=== PATIENT | male | born 1975 | race Two or more races ===

== ENCOUNTER 2021-01-24 15:21 | Inpatient (IN) | payer MEDICAID ==
[~2021-01-24] VITALS: Ht 162.6 cm; Wt 89.8 kg
--- NOTE | 2021-01-24 15:41 | NUR ---
NANCY DAUGHTER [phone]
--- NOTE | 2021-01-24 16:11 | NUR ---
[facility] TO ER BED 12. AAOX1. NOT IN RESP DSITRESS, BREATHING EVEN AND UNLABORED. ANSWERS TO YES AND NO QUESTIONS BY GESTURES. BED BOUND. BROUGHT IN FOR DISLODGE TRACH TUBE. PT STOMA IS NOTED ALREADY CLOSED. PT IS BREATHING ON HIS OWN WITHOUT ANY DISTRESS. PT SATTING 95-96% ON RA. PT IS PLACED ON O2 VIA NC PER MD ORDERED, TOLERATING WELLW/ O2 SAT OF 100%. MD WAS AT THE BEDSIDE FOR EVAL. ORDERS RECEIVED, NOTED AND CARRIED OUT. IV LINE ESTABLSIHED ON THE L AC 20G. BLOOD DRAWN BY PHLEB. PT ON MONITOR.
[2021-01-24 16:13] LABS: BASOPHILS # (AUTO) 0.1 /CMM (0.0-0.2); BASOPHILS % (AUTO) 0.8 % (0.0-2.0); EOSINOPHILS % (AUTO) 1.3 % (0.0-6.0); HEMATOCRIT 36 % (39-51); HEMOGLOBIN 11.8 g/dL (13.5-17.5); LYMPHOCYTES # (AUTO) 2.4 /CMM (0.8-4.8); LYMPHOCYTES % (AUTO) 32.9 % (20.0-44.0); MEAN CORPUSCULAR HGB CONC 33 g/dl (31.0-36.0); MEAN CORPUSCULAR VOLUME 84 fL (80-96); MONOCYTES # (AUTO) 0.4 /CMM (0.1-1.30); MONOCYTES % (AUTO) 5.6 % (2.0-12.0); NEUTROPHILS # (AUTO) 4.3 /CMM (1.8-8.9); NEUTROPHILS % (AUTO) 59.4 % (43.0-81.0); PLATELET COUNT (AUTO) 239 /CMM (150-450); WHITE BLOOD COUNT (AUTO) 7.3 K/uL (4.3-11.0)
[2021-01-24 16:26] LABS: CREATININE 0.6 mg/dL (0.6-1.3); POTASSIUM 3.3 mmol/L (3.5-5.1)
[2021-01-24 16:32] LABS: ALBUMIN 3.3 g/dL (3.4-5.0); BILIRUBIN,DIRECT 0.1 mg/dL (0.0-0.2); BILIRUBIN,TOTAL 0.5 mg/dL (0.2-1.0); TOTAL PROTEIN, SERUM 7.8 g/dL (6.4-8.2)
--- NOTE | 2021-01-24 17:15 | NUR ---
MOVE SHEET SUBMITTED AND CALLED FOR TELE BED.
--- NOTE | 2021-01-24 17:40 | NUR ---
PT IN BED. AWAKE AND ALERT. NOT IN RESP DISTRESS. BREATHING EVEN AND UNLABORED.
[2021-01-24] MEDS ORDERED: ATOR80TA PO (17:42)
[2021-01-24] MEDS ORDERED: LEVE100S PO (17:42)
[2021-01-24] MEDS ORDERED: LORA-259 PO (17:42)
[2021-01-24] MEDS ORDERED: TRAZ-252 PO (17:42)
[2021-01-24] MEDS ORDERED: MULT1TAB69 PO (17:42)
[2021-01-24] MEDS ORDERED: CHLO25TA23 PO (17:42)
[2021-01-24] MEDS ORDERED: ASPI-1169 PO (17:42)
[2021-01-24] MEDS ORDERED: HYDROCODONE/APAP 5/325MG TABLET PO PRN (18:00)
[2021-01-24] MEDS ORDERED: ONDANSETRON HCL/PF 4 MG/2 ML VIAL IVP PRN (18:00)
[2021-01-24] MEDS ORDERED: ZOLPIDEM TARTRATE 5 MG TABLET PO PRN (18:00)
[2021-01-24] MEDS ORDERED: Z GUARD REMEDY 2 OZ OINT TP PRN (18:00)
[2021-01-24] MEDS ORDERED: ACETAMINOPHEN 325 MG TABLET PO PRN (18:00)
[2021-01-24] MEDS ORDERED: MAGNESIUM HYDROXIDE 30 ML UDC PO PRN (18:00)
[2021-01-24] MEDS ORDERED: MAG HYDROX/AL HYDROX/SIMETH 30 ML UDC PO PRN (18:00)
[2021-01-24] MEDS ORDERED: LORAZEPAM 1 MG TABLET PO PRN (18:00)
--- NOTE | 2021-01-24 19:31 | NUR ---
PT ASSIGNED TO BED 108
--- NOTE | 2021-01-24 19:48 | NUR ---
REPORT GIVEN TO PARISH LIMON FOR TINA
--- NOTE | 2021-01-24 20:21 | NUR ---
PT TRANSPORTED TO UNIT ON GURNEY WITH EMT AND RN AT BEDSIDE W/ ACLS PROTOCOL. NAD NOTED DURING TRANSPORT.
[2021-01-24 20:28] VITALS: BP 130/86
[2021-01-24] MEDS: POTASSIUM CL. PREMIX PERIPHER. 50 ML IV SCH ×2 (22:21→23:28)
[2021-01-24] MEDS: TRAZODONE 50 MG TABLET PO SCH (22:31)
[2021-01-24] MEDS: ATORVASTATIN 40 MG TABLET PO SCH (22:32)
[2021-01-24] MEDS ORDERED: POTASSIUM CL. PREMIX PERIPHER. 100 ML ONE (22:36)
[2021-01-25] VITALS: BP 128/77
--- NOTE | 2021-01-25 01:00 | NUR ---
WRONG PATIENT BLOOD SUGAR
--- NOTE | 2021-01-25 01:00 | NUR ---
BLOOD SUGAR 139 1 HOUR AFTER 2400 COVERAGE ORDERED
[2021-01-25] MEDS: GLUCERNA 1.2 1,000 ML BOTTLE GT PRN ×2 (03:14→19:47)
[2021-01-25 04:00] VITALS: BP 131/83
--- NOTE | 2021-01-25 05:36 | NUR ---
ENDING NOTES: CONFUSED NONVERBAL THRU THE NIGHT ASP PRECAUTIONS D/T GT FDG GLUCERNA AT 70ML HR INFUSING WO PROBLEMS NO RESIDUAL WRIST RETRAINTS ON D/T HE REMOVED HIS IV AND CONTINUES TO REMOVE THE N/C 02 AT 5LITERS AND USINF NC AND SATS 94-96% 2X2 DRSSING ON THE NECK SP TRACK SITE CDI AM WIEGHT 197 LIBS
[2021-01-25 06:28] LABS: BASOPHILS % (AUTO) 0.4 % (0.0-2.0); EOSINOPHILS % (AUTO) 1.5 % (0.0-6.0); HEMATOCRIT 36 % (39-51); HEMOGLOBIN 11.8 g/dL (13.5-17.5); LYMPHOCYTES # (AUTO) 1.8 /CMM (0.8-4.8); LYMPHOCYTES % (AUTO) 27.1 % (20.0-44.0); MEAN CORPUSCULAR HGB CONC 33 g/dl (31.0-36.0); MEAN CORPUSCULAR VOLUME 83 fL (80-96); MONOCYTES # (AUTO) 0.3 /CMM (0.1-1.30); MONOCYTES % (AUTO) 4.9 % (2.0-12.0); NEUTROPHILS # (AUTO) 4.5 /CMM (1.8-8.9); NEUTROPHILS % (AUTO) 66.1 % (43.0-81.0); PLATELET COUNT (AUTO) 216 /CMM (150-450); RED BLOOD CELL COUNT(AUTO) 4.33 MIL/uL (4.5-6.0); WHITE BLOOD COUNT (AUTO) 6.7 K/uL (4.3-11.0)
[2021-01-25 06:54] LABS: CALCIUM, SERUM 8.7 mg/dL (8.5-10.1); CREATININE 0.5 mg/dL (0.6-1.3); MAGNESIUM 2.2 mg/dL (1.8-2.4); PHOSPHORUS 5.4 mg/dL (2.5-4.9); POTASSIUM 3.8 mmol/L (3.5-5.1)
--- NOTE | 2021-01-25 07:10 | NUR ---
RN OPENING NOTES RECEIVED PT IN BED AWAKE, A/O X1. NON VERBAL. 5L O2 VIA NC SATURATING @98%. NO SOB OR ANY SIGNS OF ACUTE RESPIRATORY DISTRESS. SR ON TELE MONITOR. SKIN IS INTACT. GT PLACEMENT CHECKED. GLUCERNA 1.2 @70CC/HR TOLERATING FEEDING WELL. DENIES PAIN. LAC #20 INTACT, PATENT AND FLUSHED. SAFETY MEASURES IN PLACE. BED LOCKED AND AT LOWEST POSITION WITH SIDE RAILS UP X3. CALL LIGHT WITHIN REACH. HOB ELEVATED. BED ALARM ON. WILL CONTINUE TO MONITOR.
[2021-01-25 08:00] VITALS: BP 121/89
[2021-01-25] MEDS: chlorproMAZINE HCL 25 MG TABLET PO SCH ×2 (08:57→17:06)
[2021-01-25] MEDS: ASPIRIN 81 MG TAB.CHEW PO SCH (08:57)
[2021-01-25] MEDS: LEVETIRACETAM SOL (5 ML) 100 MG/ML UDC PO SCH ×2 (08:57→20:39)
[2021-01-25] MEDS: MULTIVITAMINS,THERAGRAN 1 UDTAB TABLET PO SCH (08:57)
[2021-01-25] MEDS ORDERED: ALBUTEROL HALF STRENGTH 1.25 MG/3 ML VIAL.NEB NEB PRN (11:30)
[2021-01-25] MEDS ORDERED: IPRATROPIUM NEB FS 0.5 MG/2.5 ML AMPUL.NEB NEB PRN (11:30)
[2021-01-25 12:00] VITALS: BP 114/66
[2021-01-25 16:00] VITALS: BP 126/76
--- NOTE | 2021-01-25 18:44 | NUR ---
RN CLOSING NOTES NO SIGNIFICANT CHANGES THROUGHOUT THE SHIFT. NEEDS ATTENDED. DENIES ANY PAIN. STABLE CONDITION. SAFETY MEASURES IN PLACE. WILL ENDORSE TO NIGHT NURSE FOR TINA.
--- NOTE | 2021-01-25 19:20 | NUR ---
java security engineer opening notes Received Pt from morning nurse. Pt is resting in bed comfortably. Pt is alert and orientedX1, non verbal and able to nods head. Respiration is 5 L NC. No SOB. No S/S of distress noted. Iv site at LAC# 20 is clean, intact, flushes well and SL. Gtube is clean, intact and infusing well glucerna 1.2 kev @ 70 ml/hr. tele monitor showed SR hr at 92. Safety precautions is maintained. Bed at low position, brakes locked, side rails upX3, hob elevated and call light is within reach. Will continue to monitor.
[2021-01-25 20:00] VITALS: BP 126/75
[2021-01-25] MEDS: ATORVASTATIN 40 MG TABLET PO SCH (21:00)
[2021-01-25] MEDS: TRAZODONE 50 MG TABLET PO SCH (21:00)
[2021-01-26] VITALS (7 sets, daily range): BP systolic 123–137; BP diastolic 71–85
[2021-01-26 06:13] LABS: CALCIUM, SERUM 8.8 mg/dL (8.5-10.1); CREATININE 0.5 mg/dL (0.6-1.3); POTASSIUM 3.6 mmol/L (3.5-5.1)
[2021-01-26 06:29] LABS: BASOPHILS % (AUTO) 0.5 % (0.0-2.0); EOSINOPHILS % (AUTO) 1.9 % (0.0-6.0); HEMATOCRIT 34 % (39-51); HEMOGLOBIN 11.2 g/dL (13.5-17.5); LYMPHOCYTES # (AUTO) 1.9 /CMM (0.8-4.8); LYMPHOCYTES % (AUTO) 27.1 % (20.0-44.0); MEAN CORPUSCULAR HGB CONC 33 g/dl (31.0-36.0); MEAN CORPUSCULAR VOLUME 83 fL (80-96); MONOCYTES # (AUTO) 0.4 /CMM (0.1-1.30); MONOCYTES % (AUTO) 5.8 % (2.0-12.0); NEUTROPHILS # (AUTO) 4.5 /CMM (1.8-8.9); NEUTROPHILS % (AUTO) 64.7 % (43.0-81.0); PLATELET COUNT (AUTO) 208 /CMM (150-450); RED BLOOD CELL COUNT(AUTO) 4.07 MIL/uL (4.5-6.0); WHITE BLOOD COUNT (AUTO) 6.9 K/uL (4.3-11.0)
--- NOTE | 2021-01-26 06:35 | NUR ---
shallot packer closing notes Pt is resting in bed comfortably. Pt is alert and orientedX1, non verbal and able to nods head. Respiration is 4 L NC with O2 sat is 98%. No SOB. No S/S of distress noted. VS is stable. Afebrile. Routine meds were given as ordered. IV site at LAC# 20 is clean, intact, flushes well and SL. Gtube is clean, intact and infusing well glucerna 1.2 kev @ 70 ml/hr with 0 residual. Pt tolerated well. Tele monitor showed SR hr at 70. Bilateral soft wrists restraint are intact, skin is warm to touch and circulation is checks Q 2 hr. Kept Pt clean, dry and comfortable. Safety precautions is maintained. Bed at low position, brakes locked, side rails upX3, hob elevated and call light is within reach. Will endorse to morning nurse for TINA.
[2021-01-26] MEDS: LEVETIRACETAM SOL (5 ML) 100 MG/ML UDC PO SCH ×2 (08:07→20:50)
[2021-01-26] MEDS: MULTIVITAMINS,THERAGRAN 1 UDTAB TABLET PO SCH (08:07)
[2021-01-26] MEDS: ASPIRIN 81 MG TAB.CHEW PO SCH (08:07)
[2021-01-26] MEDS: chlorproMAZINE HCL 25 MG TABLET PO SCH ×2 (08:07→16:35)
--- NOTE | 2021-01-26 10:45 | NUR ---
WOUND CARE CONSULT: PT PRESENTS WITH INTACT SKIN. PT NOTED TO BE INCONTINENT. RECOMMENDATIONS MADE FOR SKIN PROTECTION. DISCUSSED WITH NURSING STAFF. PT IS ON RODRICK ISOFLEX LOW AIRLOSS BED. MD IN AGREEMENT WITH PLAN OF CARE.
--- NOTE | 2021-01-26 11:00 | NUR ---
RN NOTE Patient passed nursing swallow eval. Able to drink water without difficulty, no signs of aspiration, no coughing. Notified MD; awaiting diet orders. Speech therapy stated she will able to come by tomorrow for ST naila. Addendum: 01/26/21 at 1159 by ROLANDO JUAN RN Received telephone order for diabetic diet. Patient able to swallow apple sauce without difficulty.
[2021-01-26 12:04] LABS: ABG BASE EXCESS 4.2 mmol/L; ABG OXYGEN SATURATION 93.2 % (92.0-98.5); ABG PCO2 46.9 mmHg (35.0-45.0); ABG PH 7.416 (7.350-7.450); ABG PO2 68.1 mmHg (75.0-100.0); AaDO2 25.5 mmHg; COHb 0.6 % (0.5-1.5); MetHb 0.3 % (0.0-1.5); O2Hb 92.4 % (94.0-97.0); SITE, ABG Left Brachial; VENT MODE, BG room air
--- NOTE | 2021-01-26 18:08 | NUR ---
RN CLOSING NOTE Patient is A/Ox1, confused, able to answer by nodding head or occasionally one word. Breathing is even and unlabored saturating 93-95% on room air. Tele monitor SR 90s. LAC#20g is clean and intact flushing well s/l. Bilateral soft wrist restraints in place d/t patient attempting to pull out lines, circulation checked, no adverse reaction. Safety measures in place, aspiration and seizure precautions in place, call light within reach. Will endorse to manager night for TINA.
--- NOTE | 2021-01-26 19:10 | NUR ---
chart changer opening notes Received Pt from morning nurse. Pt is resting in bed comfortably. Pt is alert and orientedX1, non verbal and able to nods head. Respiration is normal in room air. No SOB. No S/S of distress noted. Iv site at LAC# 20 is clean, intact, flushes well and SL. Per am nurse Pt passed bedside nursing swallow eval. Tele monitor showed Stachy hr at 108. Bilateral soft wrists restraints are intact, skin is warm to touch and circulation is checks Q 2 HR. Safety precautions is maintained. Bed at low position, brakes locked, side rails upX3, hob elevated and call light is within reach. Will continue to monitor.
[2021-01-26] MEDS: MUPIROCIN OINT 2% 22 GM TUBE NS SCH (20:40)
[2021-01-26] MEDS: TRAZODONE 50 MG TABLET PO SCH (21:04)
[2021-01-26] MEDS: ATORVASTATIN 40 MG TABLET PO SCH (21:04)
--- NOTE | 2021-01-26 22:43 | NUR ---
brand ambassador closing notes Transferred continuity of care to PARISH Otero.
--- NOTE | 2021-01-26 22:55 | NUR ---
RN NOTES, RECEIVED PATIENT FROM ALEXIS LUGO FOR CONTINUATION OF CARE, PATIENT ON ROOM AIR NO SOB/ACUTE DISTRESS NOTED, WILL CONTINUE TO MONITOR CLOSELY.
[2021-01-27] VITALS: BP 134/83
[2021-01-27 04:00] VITALS: BP 145/94
--- NOTE | 2021-01-27 06:51 | NUR ---
RN NOTE, PATIENT IN BED, ASLEEP AT THIS TIME, AROUSES TO VERBAL STIMULI, BREATHING EVEN AND UNLABORED, NO SO/ACUTE DISTRESS AT THIS TIME, WITH O2 SAT LEVEL >94% AT ROOM AIR SR ON THE MONITOR, BILATERAL SOFT WRIST RESTRAIN IN PLACED, NO ABNORMALITY NOTED AT SITE, NO CIRCULATION COMPROMISED, NO SIGNIFICANT CHANGE IN CONDITION DURING THE NIGHT, ALL SAFETY MEASURES IN PLACED, BED LOCKED AND LOWEST POSITION, SIDE RAILS UP X2, CALL LIGHT WITHIN REACH, WILL ENDORSE CONTINUITY OF CARE TO ONCOMING NURSE.
[2021-01-27 08:00] VITALS: BP 156/99
--- NOTE | 2021-01-27 08:00 | NUR ---
PATIENT RECEIVED IN BED, ON ROOM AIR. PATIENT REPORTEDLY REMOVED TRACH, CURRENTLY BREATHING ON ROOM AIR WITH BL SOFT WRIST RESTRAINTS TO PREVENT PULLING GT AND IV LINES. PATIENT ABLE TO NOD HEAD YES OR NO FOR SIMPLE QUESTIONS. PATIENT LAC [address], FLUSHED WELL, NO SIGNS OF INFECTION OR INFILTRATION. PER PREVIOUS RN, PATIENT TO BE DC TODAY. ALL SAFETY MEASURES IN PLACE. WILL CONTINUE TO MONITOR CLOSELY
[2021-01-27] MEDS: LEVETIRACETAM SOL (5 ML) 100 MG/ML UDC PO SCH ×2 (08:15→22:20)
[2021-01-27] MEDS: ASPIRIN 81 MG TAB.CHEW PO SCH (08:15)
[2021-01-27] MEDS: MULTIVITAMINS,THERAGRAN 1 UDTAB TABLET PO SCH (08:15)
[2021-01-27] MEDS: MUPIROCIN OINT 2% 22 GM TUBE NS SCH ×2 (08:16→22:22)
[2021-01-27] MEDS: chlorproMAZINE HCL 25 MG TABLET PO SCH ×2 (08:16→18:03)
--- NOTE | 2021-01-27 10:20 | NUR ---
PER TAYLOR PENA, WILL HOLD DC FOR NOW. PREVIOUSLY REPORTED THAT G TUBE IT TO BE REMOVED, ENDORSED TO TAYLOR PENA, WILL FOLLOW UP
--- NOTE | 2021-01-27 14:40 | NUR ---
PER CASE MANAGEMENT, AWAITING PLACEMENT AT BOARD AND CARE TO DC. PT TO BE DC WITH G-TUBE IN PLACE. PATIENT CURRENTLY HAVING MINIMAL PO INTAKE, PRIMARY MONTESSORI TODDLER TEACHER AWARE
[2021-01-27 16:00] VITALS: BP 141/85
--- NOTE | 2021-01-27 19:15 | NUR ---
PENDING DC, SCHEDULED BOX WORKER AT 1900. ALL NEEDS ENDORSED TO ONCOMING RN TO DC PATIENT WHENEVER TRANSPORT ARRIVES. ALL DC PAPERWORK COMPLETE, BELONGINGS SIGNED. NO PHOTOGRAPHS TO TAKE.
--- NOTE | 2021-01-27 20:20 | NUR ---
RN NOTE PT DISCHARGE TO BOARD AND CARE, IN STABLE CONDITION. PICKED UP BY 2 EMT VIA GURNEY BY [facility].
--- NOTE | 2021-01-27 20:45 | NUR ---
MS RN NOTE [facility] COORDINATOR RADHA CALLED AND INFORMED ME THAT FACILITY WHERE THEY TOOK THE PATIENT IS NOT EQUIPED TO TAKE CARE OF THIS KIND OF PATIENT. AND BRINGING THE PT BACK TO FACILITY. INFORMED NURSING FORENSIC MATERIALS ENGINEER AND ALSO LEFT THE MESSAGE FOR RADHA MANUFACTURING LAB TECHNICIAN.
--- NOTE | 2021-01-27 21:00 | NUR ---
MS RN NOTE DANILO DNP ALSO INFORMED THAT PT CAME BACK AFTER DISCHARGED FROM THE HOSPITAL DUE TO FACILITY UNABLE TO TAKE CARE OF THIS KIND OF PATIENT.
--- NOTE | 2021-01-27 21:48 | NUR ---
RN NOTE PT BROUGHT BACK BY 2 HOOP PUNCH OPERATOR HELPER. IN STABLE CONDITION. BP 112/87 RR 20 P 105 T 98.2. PT DENIES ANY PAIN. NO DISTRESS NOTED. ALL SAFETY MEASURES IMPLEMENTED PER PROTOCOL. CALL LIGHT WITHIN REACH. BED LOCKED IN LOWEST POSITION. BED ALARM ON.
[2021-01-27 22:00] VITALS: BP 112/87
[2021-01-27] MEDS: ATORVASTATIN 40 MG TABLET PO SCH (22:22)
[2021-01-27] MEDS: TRAZODONE 50 MG TABLET PO SCH (22:23)
[2021-01-28 04:00] VITALS: BP 123/79
--- NOTE | 2021-01-28 07:05 | NUR ---
RN NOTE PT REMAIN STABLE, ALL NEEDS ATTENDED. NO RESP DISTRESS NOTED. ALL SAFETY MEASURES MAINTAINED. WILL ENDORSE TO NEXT SHIFT NURSE FOR TINA.
--- NOTE | 2021-01-28 07:50 | NUR ---
RN OPENING NOTE PATIENT IS IN BED WITH HOB AT SEMI FOWLERS POSITION. CURRENTLY ON ROOM AIR WITH NO SIGNS OF LABORED BREATHING. SKIN IS INTACT. GTUBE IS IN PLACE. LH#20 IS PATENT, INTACT, AND HAS NO SIGNS OF INFILTRATION. BED IS LOCKED IN THE LOWEST POSITION, 3 GUARD RAILS RAISED, CALL OLVERA WITHIN REACH, AND ALL HOSPITAL SAFETY PRECAUTIONS ARE BEING FOLLOWED. WILL CONTINUE TO MONITOR THROUGHOUT SHIFT.
[2021-01-28] MEDS: ASPIRIN 81 MG TAB.CHEW PO SCH ×2 (08:50→09:00)
[2021-01-28] MEDS: MULTIVITAMINS,THERAGRAN 1 UDTAB TABLET PO SCH ×2 (08:50→09:00)
[2021-01-28] MEDS: chlorproMAZINE HCL 25 MG TABLET PO SCH (08:50)
[2021-01-28] MEDS: LEVETIRACETAM SOL (5 ML) 100 MG/ML UDC PO SCH ×2 (08:52→09:00)
[2021-01-28] MEDS: MUPIROCIN OINT 2% 22 GM TUBE NS SCH ×2 (08:52→09:00)
--- NOTE | 2021-01-28 09:30 | NUR ---
RN NOTE PATIENT REFUSED AM MEDS. EDUCATED PATIENT ON IMPORTANCE OF TAKING MEDICATIONS AND POTENTIAL SIDE EFFECTS. PATIENT STILL REFUSED.
--- NOTE | 2021-01-28 09:55 | NUR ---
Clinical Social Work Note Beatrice Gallagher alterted this commercial underwriter to possible negligence from YOSI Rehman ([phone]) who sent this patient to [facility] for respiratory failure. Facility are refusing to take this patient back and alleging that [facility] just paid them for one month. Spoke with hCloé hernandezleda Pizano ( [phone]) who reported to this commercial underwriter that she has " five children and did not at anytime agree to care for her father as she cannot provide for his level of care ". It seems different hospitals are having to assume responsibility for this patient's care since family are unable to/ unwilling to do so. Patient is critically ill. Advised [employer] and Pennie case management and team present in 0900 case management meeting that our hospital will need to assume responsibility for safe disposition of patient.
--- NOTE | 2021-01-28 13:23 | NUR ---
RN NOTE PATIENT WAS ABLE TO WALK WITH WALKER TODAY X2, SIT IN CHAIR, AND FEED INDEPENDENTLY.
--- NOTE | 2021-01-28 13:23 | NUR ---
RN NOTE PROVIDED HANDOFF TO EMT FOR TINA. PATIENT IS IN STABLE CONDITION.
--- NOTE | 2021-01-28 15:57 | NUR ---
SS Note: JOSE A Gibson faxed SOC [phone] to [facility] TEL:[phone] fax:[phone].
--- NOTE | 2021-01-29 15:29 | NUR ---
SS Note: SW received call from pt.'s daughter, Annette Pizano [phone] request pt.'s discharge location. SW provided discharge location & address to family. SW will be available as needed.
== END 2021-01-28 13:48 | DRG 143 ==
LOC: ER 15:25 → TELE1 19:36 → MEDSG1 01-27 08:43 → UNDODISIN 01-27 20:20 → MEDSG1 01-27 21:45
PROVIDERS: ADMIT Family Medicine; ATTEND Nurse Practitioner Acute Care
DX: J95.03 Malfunction of tracheostomy stoma (principal); J96.10 Chronic respiratory failure, unspecified whether with hypoxia or hypercapnia; Y83.3 Surgical operation with formation of external stoma as the cause of abnormal reaction of the patient, or of later complication, without mention of misadventure at the time of the procedure; Y72.8 Miscellaneous otorhinolaryngological devices associated with adverse incidents, not elsewhere classified; Y92.129 Unspecified place in nursing home as the place of occurrence of the external cause; R56.9 Unspecified convulsions; I10 Essential (primary) hypertension; E44.1 Mild protein-calorie malnutrition; G93.40 Encephalopathy, unspecified; I25.10 Atherosclerotic heart disease of native coronary artery without angina pectoris; Z20.822 Contact with and (suspected) exposure to COVID-19; R13.10 Dysphagia, unspecified; E78.5 Hyperlipidemia, unspecified; E66.2 Morbid (severe) obesity with alveolar hypoventilation; Z68.34 Body mass index [BMI] 34.0-34.9, adult; D63.8 Anemia in other chronic diseases classified elsewhere; E87.6 Hypokalemia; E11.65 Type 2 diabetes mellitus with hyperglycemia; J98.11 Atelectasis; G93.49 Other encephalopathy
CPT/HCPCS: 36415; 36600; 71045-TC; 80048-TC; 80061-TC; 80076-TC; 83735-TC; 84100-TC; 85025-TC; 85730-TC; 87081-TC; 92526; 92611-TC; 97112-TC; 97116-TC; 97530-TC; C9803; G0378; J1953; J3480; Q0161; U0003